=== PATIENT | male | born 1980 | race Caucasian/White ===

== ENCOUNTER 2021-05-15 14:45 | Emergency (ER) | payer OTHER ==
[2021-05-15 15:28] VITALS: BP 148/122; PULSE 100
--- NOTE | 2021-05-15 16:20 | EDM.PDOC ---
ED HPI GENERAL MEDICAL PROBLEM - General Chief Complaint: Abdominal Pain Stated Complaint: ABDOMINAL PAIN Time Seen by Provider: 05/15/21 15:57 Source of Information: Reports: Patient, RN Notes Reviewed History Limitations: Reports: No Limitations - History of Present Illness INITIAL COMMENTS - FREE TEXT/NARRATIVE: Patient is a 40-year-old male presenting to the emergency department with complaints of left lower abdominal pain. Reports pain is been present for the last 2 months and seems to worsen with bending over or tightening of his abdominal wall muscles. Yesterday, he was bending over frequently while working and has been having worsening discomfort today. He has not been previously worked up for this pain. He denies any fever, chills, nausea, vomiting, diarrhea. States that he feels that the pain is superficial, likely in the abdominal wall, as even light touching causes discomfort. Abdominal Pain Score (Numeric/FACES): 3 - Related Data Allergies Allergy/AdvReac Type Severity Reaction Status Date / Time [place] Allergy Swelling Uncoded 05/15/21 15:28 neopsorin Allergy Swelling Uncoded 05/15/21 15:28 Home Meds: Home Meds . [No Known Home Meds] 05/15/21 [History] Past Medical History - Past Health History Medical/Surgical History: Denies Medical/Surgical History Musculoskeletal History: Reports: Other (See Below) Other Musculoskeletal History: Right Knee Swelling, Bursitis Dermatologic History: Reports: Cellulitis - Past Surgical History Other Musculoskeletal Surgeries/Procedures:: Incision and drainage and open no opening of wound right anterior tibia with requirement for skin grafting Social & Family History - Tobacco Use Tobacco Use Status *Q: Current Every Day Tobacco User Years of Tobacco use: 1 Packs/Tins Daily: 0.2 - Caffeine Use Caffeine Use: Reports: Energy Drinks, Soda - Recreational Drug Use Recreational Drug Use: No ED ROS GENERAL - Review of Systems Review Of Systems: Comprehensive ROS is negative, except as noted in HPI. ED EXAM, GI/ABD - Physical Exam Exam: See Below Exam Limited By: No Limitations General Appearance: Alert, WD/WN, No Apparent Distress Respiratory/Chest: No Respiratory Distress, Lungs Clear, Normal Breath Sounds, No Accessory Muscle Use, Chest Non-Tender Cardiovascular: Normal Peripheral Pulses, Regular Rate, Rhythm, No Edema, No Gallop, No JVD, No Murmur, No Rub GI/Abdominal Exam: Normal Bowel Sounds, Soft, No Organomegaly, No Distention, No Abnormal Bruit, No Mass, Pelvis Stable, Tender (Tenderness to light palpation of abdomen neck to clock position of umbilicus. Small, palpable abdominal wall defect palpable. No reducible hernia present.) Neurological: Alert, Oriented, CN II-XII Intact, Normal Cognition, Normal Gait, Normal Reflexes, No Motor/Sensory Deficits Psychiatric: Normal Affect, Normal Mood Skin Exam: Warm, Dry, Intact, Normal Color, No Rash Course - Vital Signs Last Recorded V/S: Last Vital Signs Temp 96.9 F 05/15/21 15:27 Pulse 100 05/15/21 15:27 Resp 18 05/15/21 15:27 BP 148/122 H 05/15/21 15:27 Pulse Ox 100 05/15/21 15:27 - Orders/Labs/Meds Labs: Laboratory Tests 05/15/21 05/15/21 Range/Units 16:31 16:31 WBC 10.28 H (4.23-9.07) K/mm3 RBC 4.79 (4.63-6.08) M/mm3 Hgb 14.4 (13.7-17.5) gm/dl Hct 43.9 (40.1-51.0) % MCV 91.6 (79.0-92.2) fl MCH 30.1 (25.7-32.2) pg MCHC 32.8 (32.2-35.5) g/dl RDW Std Deviation 46.4 H (35.1-43.9) fL Plt Count 217 (163-337) K/mm3 MPV 10.5 (9.4-12.3) fl Neut % (Auto) 63.8 (34.0-67.9) % Lymph % (Auto) 25.1 (21.8-53.1) % [place] % (Auto) 8.5 (5.3-12.2) % Eos % (Auto) 1.8 (0.8-7.0) Baso % (Auto) 0.4 (0.1-1.2) % Neut # (Auto) 6.56 H (1.78-5.38) K/mm3 Lymph # (Auto) 2.58 (1.32-3.57) K/mm3 [place] # (Auto) 0.87 H (0.30-0.82) K/mm3 Eos # (Auto) 0.19 (0.04-0.54) K/mm3 Baso # (Auto) 0.04 (0.01-0.08) K/mm3 Sodium 140 (136-145) mEq/L Potassium 4.0 (3.5-5.1) mEq/L Chloride 105 (98-107) mEq/L Carbon Dioxide 21 (21-32) mEq/L Anion Gap 18.0 H (5-15) BUN 20 H (7-18) mg/dL Creatinine 1.0 (0.7-1.3) mg/dL Est Cr Clr Drug Dosing 119.35 mL/min Estimated GFR (MDRD) > 60 (>60) mL/min BUN/Creatinine Ratio 20.0 H (14-18) Glucose 118 H (70-99) mg/dL Calcium 8.6 (8.5-10.1) mg/dL Total Bilirubin 0.3 (0.2-1.0) mg/dL AST TNP ALT 42 (16-63) U/L Alkaline Phosphatase 55 (46-116) U/L C-Reactive Protein <0.2 (<1.0) mg/dL Total Protein 7.1 (6.4-8.2) g/dl Albumin 3.8 (3.4-5.0) g/dl Globulin 3.3 gm/dL Albumin/Globulin Ratio 1.2 (1-2) - Re-Assessments/Exams Free Text/Narrative Re-Assessment/Exam: Patient is a 40-year-old male presenting to the emergency department with complaints of left lower abdominal pain 2 months. He reports pain is worse anytime he does heavy lifting or is repetitively bending over. On exam, there is a slight bulge palpable approximately the 2 o'clock position from the umbilicus. I suspect symptoms are being caused by hernia. I have ordered ultrasound of the abdominal wall as well as routine blood work. 05/15/21 17:47 Hematology is unremarkable. Abdominal ultrasound shows small anterior abdominal wall hernia measuring 1.2 cm in width at the herniated portion. Within the abdominal wall, and measures 3.3 x 2.7 x 4.3 cm. This is an interval change from prior CT exam. Results discussed with patient. I will send referral to general surgeon, Dr. Harper. Recommend contacting his office tomorrow to consult. Patient reports that he would like to have it surgically repaired sooner rather than later as he is currently out of work at this time. Discussed that he may also contact [facility] to see when the earliest they would be able to see him is. I will push ultrasound images to [place] should he decide to go there. Recommend avoiding heavy lifting and repetitive bending until evaluated by surgeon. He is in agreement with this plan. Discharge instr uctions as document. Departure - Departure Time of Disposition: 17:47 Disposition: Home, Self-Care 01 Condition: Good Clinical Impression: Abdominal wall hernia - Discharge Information *PRESCRIPTION DRUG MONITORING PROGRAM REVIEWED*: No *COPY OF PRESCRIPTION DRUG MONITORING REPORT IN PATIENT LEONEL: No Instructions: Hernia, Adult Referrals: Toi Harper MD [Physician] - Lily Georges MD [Physician] - Forms: ED Department Discharge Additional Instructions: Avoid heavy lifting or repetitive bending. Contact general surgeon, Dr. Harper at [facility] or Dr. Georges at [place] tomorrow set up follow-up appointment. Return to ER for any new or worsening symptoms. Sepsis Event Note (ED) - Focused Exam Vital Signs: Vital Signs Temp Pulse Resp BP Pulse Ox 05/15/21 15:27 96.9 F 100 18 148/122 H 100
--- NOTE | 2021-05-15 17:34 | US ---
Limited abdominal ultrasound: Multiple real-time images were obtained of the mid abdominal wall superior to the umbilicus. Comparison: Prior CT abdomen of 03/07/10. Findings: Small hernia is identified to the midline located superior to the umbilicus. This has a width of 1.2 cm with herniated portion within the abdominal wall measuring 3.3 x 2.7 x 4.3 cm. This represents an interval change from previous CT exam. Impression: 1. Small anterior abdominal wall hernia as described above. Diagnostic code #3
== END 2021-05-15 18:00 | disposition home or self-care (01) ==
LOC: JD.ED 14:45
DX: K43.9 Ventral hernia without obstruction or gangrene (principal); Z72.0 Tobacco use; Z88.8 Allergy status to other drugs, medicaments and biological substances; Z91.048 Other nonmedicinal substance allergy status
CPT/HCPCS: 36415; 76705; 76705-26; 80053; 85025; 86140; 99284; 99284-25

== ENCOUNTER 2022-05-29 10:38 | Emergency (ER) | payer OTHER ==
[2022-05-29 10:49] VITALS: BP 144/85; PULSE 99
== END 2022-05-29 13:03 | disposition home or self-care (01) ==
LOC: JD.ED 10:38
DX: M25.561 Pain in right knee (principal); M25.461 Effusion, right knee; Z88.1 Allergy status to other antibiotic agents
CPT/HCPCS: 36415; 73562-26-RT; 73562-RT; 80053; 85025; 86140; 99283

== ENCOUNTER 2022-06-01 18:45 | Inpatient (IN) | payer OTHER ==
[2022-06-01] MEDS ORDERED: Sodium Chloride 0.9% 10 ML Syringe FLUSH PRN (22:33)
[2022-06-01] MEDS ORDERED: Doxycycline 100 MG in Sodium Chloride 0.9% 100 ML IV ONE (22:37)
[2022-06-02] MEDS ORDERED: HYDROmorphone 0.5 MG/0.5 ML Syringe IVPUSH PRN (01:24)
[2022-06-02] MEDS ORDERED: Vancomycin 2 GM in Sodium Chloride 0.9% 500 ML IV ONE ×2 (02:00→03:30)
[2022-06-02] MEDS ORDERED: Acetaminophen 325 MG Tab PO PRN (08:24)
[2022-06-02] MEDS: Naproxen 500 MG Tab PO SCH ×2 (08:40→20:07)
[2022-06-02] MEDS: Enoxaparin 40 MG/0.4 ML Syringe SUBCUT SCH (08:41)
[2022-06-02] MEDS: Doxycycline 100 MG in Sodium Chloride 0.9% 100 ML IV SCH ×2 (08:41→20:07)
[2022-06-02] MEDS ORDERED: Docusate Sodium 100 MG Cap PO PRN (09:50)
[2022-06-02] MEDS ORDERED: oxyCODONE 5 MG Tab PO PRN (09:50)
[2022-06-02] MEDS ORDERED: Ondansetron 4 MG/2 ML SDV IV PRN (09:50)
[2022-06-02 11:38] LABS: HEMOGLOBIN A1C 6.2 %
[2022-06-03] MEDS: Enoxaparin 40 MG/0.4 ML Syringe SUBCUT SCH (09:04)
[2022-06-03] MEDS: Naproxen 500 MG Tab PO SCH ×2 (09:04→20:41)
[2022-06-04] MEDS: Naproxen 500 MG Tab PO SCH ×2 (08:17→20:27)
[2022-06-04] MEDS: Enoxaparin 40 MG/0.4 ML Syringe SUBCUT SCH (08:17)
[2022-06-05 08:01] VITALS: BP 131/81; PULSE 76
[2022-06-05] MEDS: Naproxen 500 MG Tab PO SCH (08:04)
[2022-06-05] MEDS: Enoxaparin 40 MG/0.4 ML Syringe SUBCUT SCH (08:04)
== END 2022-06-05 11:49 | disposition home or self-care (01) | DRG 603 ==
LOC: JD.ED 18:45 → JD.ICU 23:54
PROVIDERS: ADMIT Internal Medicine; ATTEND Internal Medicine
DX: L03.115 Cellulitis of right lower limb (principal); Z68.43 Body mass index [BMI] 50.0-59.9, adult; E66.01 Morbid (severe) obesity due to excess calories; R73.03 Prediabetes; R73.9 Hyperglycemia, unspecified; Z88.8 Allergy status to other drugs, medicaments and biological substances
CPT/HCPCS: 36415; 80048; 80053; 83036; 85025; 86140; 87641; 93925; 93925-26; 96365; 99284-25; A9270-GY; J1170; J1650; J3370; J3490; J7040; J7050